=== PATIENT | female | born 1955 | race Caucasian/White ===

== ENCOUNTER 2024-01-19 14:00 | Inpatient (IN) | payer MEDICARE ==
[~2024-01-19] VITALS: Ht 157.5 cm; Wt 65.2 kg
[2024-01-19] MEDS ORDERED: mag hydrox/Alum hydrox/simeth 30ml oral suspension PO PRN (18:10)
[2024-01-19] MEDS ORDERED: magnesium sulf-water 2g/50mL 50 ML IV PRN (18:10)
[2024-01-19] MEDS ORDERED: morphine 2 MG/ML inj. syringe IV PRN (18:10)
[2024-01-19] MEDS ORDERED: magnesium sulf-water 4G/100mL 100 ML IV PRN (18:10)
[2024-01-19] MEDS ORDERED: potassium Cl 20 mEq SR tablet PO PRN (18:10)
[2024-01-19] MEDS ORDERED: HYDROcodone/acetaminophen 5mg/325mg tablet PO PRN (18:10)
[2024-01-19] MEDS ORDERED: acetaminophen 325mg tablet PO PRN (18:10)
[2024-01-19] MEDS ORDERED: magnesium hydroxide 30ml (MOM) UD suspension PO PRN (18:10)
[2024-01-19] MEDS ORDERED: magnesium Cl slow-release 64mg tablet PO PRN (18:10)
[2024-01-19] MEDS ORDERED: haloperidol 5mg tablet PO PRN (19:40)
[2024-01-19] MEDS ORDERED: LORazepam 1 MG tablet PO PRN (19:40)
[2024-01-19] MEDS ORDERED: haloperidol lactate 5mg/ml inj IM PRN (19:40)
[2024-01-19] MEDS ORDERED: LORazepam 2 mg/ml vial IV PRN (19:40)
[2024-01-19 20:00] VITALS: RESP 16
[2024-01-19] MEDS: normal saline 1000ml 1,000 ML IV SCH ×2 (20:17→20:40)
[2024-01-19] MEDS: docusate sod 100mg capsule PO SCH (20:30)
[2024-01-19] MEDS: folic acid 1mg tablet PO SCH (20:30)
[2024-01-19] MEDS: K and/or MAG REPLACEMENT MC SCH (20:30)
[2024-01-19] MEDS: thiamine 100mg tablet PO SCH (20:30)
[2024-01-19] MEDS: pantoprazole 40 MG vial IV SCH (20:48)
[2024-01-19] MEDS: morphine 2 MG/ML inj. syringe IV PRN (20:49)
[2024-01-19] MEDS ORDERED: TOFA5TAB PO (21:07)
[2024-01-19] MEDS ORDERED: ROSU40TA PO (21:07)
[2024-01-19] MEDS ORDERED: FERR325T28 PO (21:07)
[2024-01-19 21:16] LABS: % IRON SATURATION 16 % (11-46); IRON 37 UG/DL (49-151); TOTAL IRON BINDING CAPACITY 237 UG/DL (259-388)
[2024-01-19 21:17] LABS: APTT 28 SECONDS (22-32); PROTHROMBIN TIME 10.4 SECONDS (9.0-12.0)
[2024-01-19 21:19] LABS: ALANINE AMINOTRANSFERASE 851 U/L (12-78); ALBUMIN 3.1 G/DL (3.4-5.0); ALBUMIN/GLOBULIN RATIO 0.8 (1.1-1.5); ALKALINE PHOSPHATASE 493 IU/L (46-116); ANION GAP 7 (8-16); ASPARTATE AMINO TRANSFERASE 654 U/L (10-37); BILIRUBIN,TOTAL 2.4 MG/DL (0.1-1.0); BLOOD UREA NITROGEN 9 MG/DL (7-18); BUN/CREATININE RATIO 10.1 (10.0-20.0); CALCIUM 8.5 MG/DL (8.5-10.1); CHLORIDE 106 MMOL/L (99-107); CREATININE 0.89 MG/DL (0.40-0.90); GLUCOSE 96 MG/DL (70-104); SODIUM 138 MMOL/L (135-145); TOTAL CARBON DIOXIDE 24.7 MMOL/L (24-32); TOTAL PROTEIN 6.8 G/DL (6.4-8.2); eCRCL 49 ML/MIN; eGFR 63 ML/MIN
[2024-01-19 21:41] LABS: HEMOGLOBIN A1C 5.6 % (4.5-6.2)
[2024-01-19 22:00] VITALS: BP 131/70; PULSE 95; RESP 14; TEMP 97.3; O2SAT 100
[2024-01-19 22:11] LABS: FERRITIN 1660 NG/ML (8-252); LIPASE > 375 U/L (16-77)
[2024-01-20 05:52] LABS: BASOPHILS % (AUTO) 0.4 % (0-1); EOSINOPHILS # (AUTO) 0.3 X10'3 (0-0.9); EOSINOPHILS % (AUTO) 3.7 % (0-6); HEMATOCRIT 34.6 % (35.0-45.0); HEMOGLOBIN 11.7 g/dl (12.0-16.0); LYMPHOCYTES # (AUTO) 0.7 X10'3 (1.1-4.8); MEAN CORPUSCULAR HEMOGLOBIN 32.1 PG (27.0-31.0); MEAN CORPUSCULAR HGB CONC 33.7 g/dL (33.0-36.5); MEAN CORPUSCULAR VOLUME 95.1 FL (78-98); MEAN PLATELET VOLUME 7.2 FL (7.4-10.4); MONOCYTES # (AUTO) 0.7 X10'3 (0-0.9); NEUTROPHILS # (AUTO) 7.7 X10'3 (1.8-7.7); NEUTROPHILS % (AUTO) 81.9 % (42-75); PLATELET COUNT 316 X10'3 (140-440); RED BLOOD COUNT 3.64 X10'6 (4.20-5.60); RED CELL DISTRIBUTION WIDTH 14.2 % (11.5-14.5); WHITE BLOOD COUNT 9.4 X10'3 (4.5-11.0)
[2024-01-20 06:00] VITALS: BP 103/67; PULSE 105; RESP 18; TEMP 97.3; O2SAT 98
[2024-01-20 06:08] LABS: ALANINE AMINOTRANSFERASE 710 U/L (12-78); ALBUMIN 2.7 G/DL (3.4-5.0); ALBUMIN/GLOBULIN RATIO 0.8 (1.1-1.5); ALKALINE PHOSPHATASE 539 IU/L (46-116); AMYLASE 527 U/L (25-115); ANION GAP 8 (8-16); ASPARTATE AMINO TRANSFERASE 494 U/L (10-37); BILIRUBIN,TOTAL 2.6 MG/DL (0.1-1.0); BLOOD UREA NITROGEN 8 MG/DL (7-18); BUN/CREATININE RATIO 11.3 (10.0-20.0); CALCIUM 7.9 MG/DL (8.5-10.1); CHLORIDE 106 MMOL/L (99-107); CHOL/HDL RATIO 1.8 (0.00-4.99); CHOLESTEROL 158 MG/DL (0-200); CREATININE 0.71 MG/DL (0.40-0.90); GLUCOSE 90 MG/DL (70-104); HDL CHOLESTEROL 90 MG/DL (35-60); LDL CHOLESTEROL 31 MG/DL (50-100); MAGNESIUM 1.7 MG/DL (1.5-2.4); PHOSPHORUS 2.4 MG/DL (2.3-4.5); POTASSIUM 4.1 MMOL/L (3.5-5.1); SODIUM 136 MMOL/L (135-145); TOTAL CARBON DIOXIDE 21.9 MMOL/L (24-32); TOTAL PROTEIN 6.1 G/DL (6.4-8.2); TRIGLYCERIDES 60 MG/DL (20-135); eCRCL 61 ML/MIN; eGFR 82 ML/MIN
[2024-01-20 06:40] LABS: LIPASE > 375 U/L (16-77)
[2024-01-20 09:00] VITALS: RESP 18; O2SAT 98
[2024-01-20 10:00] VITALS: BP 139/79; PULSE 79; RESP 17; TEMP 97.4; O2SAT 95
[2024-01-20] MEDS: pneumococcal 23-VAL P-sac vacc 25 mcg/0.5ml vial IMVAC ONE (14:30)
[2024-01-20] MEDS: multivitamins, therapeutics tablet PO SCH (17:10)
[2024-01-20] MEDS: dextrose 5%-normal saline 1,000 ML IV SCH (17:20)
[2024-01-20 18:00] VITALS: BP 169/82; PULSE 89; RESP 19; TEMP 99.1; O2SAT 98
[2024-01-20] MEDS: ondansetron/PF 4mg/2ml inj IV PRN (18:17)
[2024-01-20] MEDS: HYDROcodone/acetaminophen 10/325mg tab PO PRN (18:18)
[2024-01-20 20:00] VITALS: RESP 19; O2SAT 98
[2024-01-20 22:00] VITALS: BP 146/78; PULSE 64; RESP 16; TEMP 97.7; O2SAT 98
[2024-01-21] VITALS (16 sets, daily range): BP systolic 95–152; BP diastolic 48–88; PULSE 69–93; RESP 10–18; TEMP 96.4–99.1; O2SAT 95–99
[2024-01-21 05:33] LABS: BASOPHILS % (AUTO) 0.4 % (0-1); EOSINOPHILS # (AUTO) 0.3 X10'3 (0-0.9); EOSINOPHILS % (AUTO) 4.6 % (0-6); HEMATOCRIT 34.2 % (35.0-45.0); HEMOGLOBIN 11.4 g/dl (12.0-16.0); LYMPHOCYTES # (AUTO) 0.7 X10'3 (1.1-4.8); LYMPHOCYTES % (AUTO) 11.6 % (21-51); MEAN CORPUSCULAR HEMOGLOBIN 31.6 PG (27.0-31.0); MEAN CORPUSCULAR HGB CONC 33.3 g/dL (33.0-36.5); MEAN CORPUSCULAR VOLUME 94.7 FL (78-98); MONOCYTES # (AUTO) 0.6 X10'3 (0-0.9); MONOCYTES % (AUTO) 9.6 % (2-12); NEUTROPHILS # (AUTO) 4.3 X10'3 (1.8-7.7); NEUTROPHILS % (AUTO) 73.8 % (42-75); PLATELET COUNT 342 X10'3 (140-440); RED BLOOD COUNT 3.61 X10'6 (4.20-5.60); RED CELL DISTRIBUTION WIDTH 14.2 % (11.5-14.5); WHITE BLOOD COUNT 5.8 X10'3 (4.5-11.0)
[2024-01-21 05:59] LABS: ALANINE AMINOTRANSFERASE 631 U/L (12-78); ALBUMIN 2.6 G/DL (3.4-5.0); ALBUMIN/GLOBULIN RATIO 0.7 (1.1-1.5); ALKALINE PHOSPHATASE 638 IU/L (46-116); AMYLASE 216 U/L (25-115); ANION GAP 4 (8-16); ASPARTATE AMINO TRANSFERASE 434 U/L (10-37); BILIRUBIN,TOTAL 1.6 MG/DL (0.1-1.0); BLOOD UREA NITROGEN 6 MG/DL (7-18); BUN/CREATININE RATIO 7.3 (10.0-20.0); CALCIUM 7.6 MG/DL (8.5-10.1); CHLORIDE 110 MMOL/L (99-107); CREATININE 0.82 MG/DL (0.40-0.90); GLUCOSE 151 MG/DL (70-104); MAGNESIUM 1.9 MG/DL (1.5-2.4); PHOSPHORUS 1.9 MG/DL (2.3-4.5); POTASSIUM 3.8 MMOL/L (3.5-5.1); SODIUM 138 MMOL/L (135-145); TOTAL CARBON DIOXIDE 23.9 MMOL/L (24-32); TOTAL PROTEIN 6.1 G/DL (6.4-8.2); eCRCL 53 ML/MIN; eGFR 70 ML/MIN
[2024-01-21] MEDS: FLU VACC TS2024-25(6MOS UP)/PF 45 MCG/0.5 ML SYRINGE IMVAC ONE (08:04)
[2024-01-21 08:21] LABS: LIPASE 362 U/L (16-77)
[2024-01-21] MEDS ORDERED: glucagon, human recombinant 1mg kit ONE (09:08)
[2024-01-21] MEDS ORDERED: proCHLORperazine 10 MG/2 ml inj ONE (09:08)
[2024-01-21] MEDS ORDERED: iohexol 300mg/ml 100ml inj. ONE (09:09)
[2024-01-21] MEDS ORDERED: LIDOcaine 2% Viscous 15ml cup ONE (09:09)
[2024-01-21] MEDS ORDERED: levoFLOXACIN-Levaquin 500mg/D5 0 ML IV ONE (09:24)
[2024-01-21] MEDS ORDERED: fentaNYL/PF 50MCG/1 ML 2ML syringe ONE (09:59)
[2024-01-21] MEDS ORDERED: MIDAZolam 1 MG/ML 5ML VIAL ONE (10:00)
[2024-01-21] MEDS: metoclopramide 5 mg/ml inj IV PRN (20:05)
[2024-01-22] VITALS (7 sets, daily range): BP systolic 103–146; BP diastolic 68–88; PULSE 87–92; RESP 16–18; TEMP 97.6–99.1; O2SAT 96–98
[2024-01-22 05:09] LABS: BASOPHILS % (AUTO) 0.2 % (0-1); EOSINOPHILS # (AUTO) 0.1 X10'3 (0-0.9); EOSINOPHILS % (AUTO) 1.3 % (0-6); HEMATOCRIT 37.4 % (35.0-45.0); HEMOGLOBIN 12.4 g/dl (12.0-16.0); LYMPHOCYTES # (AUTO) 0.9 X10'3 (1.1-4.8); LYMPHOCYTES % (AUTO) 10.5 % (21-51); MEAN CORPUSCULAR HEMOGLOBIN 31.7 PG (27.0-31.0); MEAN CORPUSCULAR HGB CONC 33.2 g/dL (33.0-36.5); MEAN CORPUSCULAR VOLUME 95.5 FL (78-98); MEAN PLATELET VOLUME 7.6 FL (7.4-10.4); MONOCYTES # (AUTO) 0.7 X10'3 (0-0.9); MONOCYTES % (AUTO) 8.4 % (2-12); NEUTROPHILS % (AUTO) 79.6 % (42-75); PLATELET COUNT 405 X10'3 (140-440); RED BLOOD COUNT 3.91 X10'6 (4.20-5.60); RED CELL DISTRIBUTION WIDTH 14.4 % (11.5-14.5); WHITE BLOOD COUNT 8.7 X10'3 (4.5-11.0)
[2024-01-22 05:35] LABS: ALANINE AMINOTRANSFERASE 466 U/L (12-78); ALBUMIN 2.6 G/DL (3.4-5.0); ALBUMIN/GLOBULIN RATIO 0.7 (1.1-1.5); ALKALINE PHOSPHATASE 543 IU/L (46-116); AMYLASE 36 U/L (25-115); ANION GAP 9 (8-16); ASPARTATE AMINO TRANSFERASE 137 U/L (10-37); BILIRUBIN,TOTAL 0.7 MG/DL (0.1-1.0); BLOOD UREA NITROGEN 3 MG/DL (7-18); BUN/CREATININE RATIO 4.2 (10.0-20.0); CHLORIDE 109 MMOL/L (99-107); CREATININE 0.72 MG/DL (0.40-0.90); GLUCOSE 157 MG/DL (70-104); LIPASE 35 U/L (16-77); MAGNESIUM 1.8 MG/DL (1.5-2.4); PHOSPHORUS 2.1 MG/DL (2.3-4.5); POTASSIUM 3.3 MMOL/L (3.5-5.1); SODIUM 139 MMOL/L (135-145); TOTAL CARBON DIOXIDE 20.8 MMOL/L (24-32); TOTAL PROTEIN 6.3 G/DL (6.4-8.2); eCRCL 60 ML/MIN; eGFR 81 ML/MIN
[2024-01-22] MEDS: potassium Cl 20 mEq SR tablet PO PRN (07:36)
[2024-01-22] MEDS: potassium Cl 40MEQ/1/2NS 520ml 520 ML IV PRN (09:57)
[2024-01-22] MEDS ORDERED: ONDA-243 PO (10:24)
[2024-01-22] MEDS ORDERED: THIA100T70 PO (10:26)
[2024-01-22] MEDS ORDERED: FOLI0.4T6 PO (10:26)
[2024-01-23 05:06] LABS: BASOPHILS % (AUTO) 0.3 % (0-1); EOSINOPHILS # (AUTO) 0.1 X10'3 (0-0.9); EOSINOPHILS % (AUTO) 1.3 % (0-6); HEMATOCRIT 36.3 % (35.0-45.0); LYMPHOCYTES # (AUTO) 0.8 X10'3 (1.1-4.8); LYMPHOCYTES % (AUTO) 12.9 % (21-51); MEAN CORPUSCULAR HEMOGLOBIN 31.3 PG (27.0-31.0); MEAN CORPUSCULAR HGB CONC 33.1 g/dL (33.0-36.5); MEAN CORPUSCULAR VOLUME 94.6 FL (78-98); MONOCYTES # (AUTO) 0.9 X10'3 (0-0.9); MONOCYTES % (AUTO) 13.9 % (2-12); NEUTROPHILS # (AUTO) 4.4 X10'3 (1.8-7.7); NEUTROPHILS % (AUTO) 71.6 % (42-75); PLATELET COUNT 385 X10'3 (140-440); RED BLOOD COUNT 3.83 X10'6 (4.20-5.60); RED CELL DISTRIBUTION WIDTH 14.4 % (11.5-14.5); WHITE BLOOD COUNT 6.2 X10'3 (4.5-11.0)
[2024-01-23 05:21] LABS: ALANINE AMINOTRANSFERASE 293 U/L (12-78); ALBUMIN 2.4 G/DL (3.4-5.0); ALBUMIN/GLOBULIN RATIO 0.7 (1.1-1.5); ALKALINE PHOSPHATASE 389 IU/L (46-116); AMYLASE 34 U/L (25-115); ANION GAP 5 (8-16); ASPARTATE AMINO TRANSFERASE 48 U/L (10-37); BILIRUBIN,TOTAL 0.5 MG/DL (0.1-1.0); BLOOD UREA NITROGEN 5 MG/DL (7-18); BUN/CREATININE RATIO 6.5 (10.0-20.0); CALCIUM 7.8 MG/DL (8.5-10.1); CHLORIDE 111 MMOL/L (99-107); CREATININE 0.77 MG/DL (0.40-0.90); GLUCOSE 156 MG/DL (70-104); MAGNESIUM 1.7 MG/DL (1.5-2.4); PHOSPHORUS 2.1 MG/DL (2.3-4.5); POTASSIUM 3.5 MMOL/L (3.5-5.1); SODIUM 140 MMOL/L (135-145); TOTAL CARBON DIOXIDE 24.3 MMOL/L (24-32); eCRCL 56 ML/MIN; eGFR 75 ML/MIN
[2024-01-23 06:00] VITALS: BP 145/79; PULSE 85; RESP 16; TEMP 97.8; O2SAT 97
[2024-01-23 08:00] VITALS: RESP 16; O2SAT 97
[2024-01-23] MEDS: diatr meglu/diatrizoate 30ml oral sol.-(3 dose) bottle PO SCH (13:20)
[2024-01-23] MEDS: bisacodyl 10mg suppository rectal RC STA (14:00)
[2024-01-23 18:00] VITALS: BP 163/88; PULSE 87; RESP 15; TEMP 98.6; O2SAT 98
[2024-01-23] MEDS: NUT.TX.IMPAIRED DIGEST FXN (Ensure Clear) 237 ML PO SCH (18:00)
[2024-01-23] MEDS ORDERED: iohexol 300mg/ml 100ml inj. ONE (19:14)
[2024-01-23] MEDS: HYDROmorphone/PF 0.2 MG/ML SYRINGE IV PRN (19:18)
[2024-01-23 20:00] VITALS: RESP 15; O2SAT 98
[2024-01-23 22:00] VITALS: BP 165/99; PULSE 92; RESP 16; TEMP 98.7; O2SAT 97
[2024-01-24 05:20] LABS: BASOPHILS % (AUTO) 0.2 % (0-1); EOSINOPHILS % (AUTO) 0.4 % (0-6); HEMATOCRIT 38.3 % (35.0-45.0); HEMOGLOBIN 12.8 g/dl (12.0-16.0); LYMPHOCYTES # (AUTO) 0.8 X10'3 (1.1-4.8); LYMPHOCYTES % (AUTO) 13.8 % (21-51); MEAN CORPUSCULAR HEMOGLOBIN 31.4 PG (27.0-31.0); MEAN CORPUSCULAR HGB CONC 33.4 g/dL (33.0-36.5); MEAN PLATELET VOLUME 7.3 FL (7.4-10.4); MONOCYTES # (AUTO) 0.9 X10'3 (0-0.9); MONOCYTES % (AUTO) 15.3 % (2-12); NEUTROPHILS # (AUTO) 4.2 X10'3 (1.8-7.7); NEUTROPHILS % (AUTO) 70.3 % (42-75); PLATELET COUNT 432 X10'3 (140-440); RED BLOOD COUNT 4.07 X10'6 (4.20-5.60); RED CELL DISTRIBUTION WIDTH 14.4 % (11.5-14.5)
[2024-01-24 05:32] LABS: ALANINE AMINOTRANSFERASE 225 U/L (12-78); ALBUMIN 2.6 G/DL (3.4-5.0); ALBUMIN/GLOBULIN RATIO 0.7 (1.1-1.5); ALKALINE PHOSPHATASE 332 IU/L (46-116); AMYLASE 40 U/L (25-115); ANION GAP 7 (8-16); ASPARTATE AMINO TRANSFERASE 31 U/L (10-37); BILIRUBIN,TOTAL 0.5 MG/DL (0.1-1.0); BLOOD UREA NITROGEN 4 MG/DL (7-18); BUN/CREATININE RATIO 4.9 (10.0-20.0); CALCIUM 8.2 MG/DL (8.5-10.1); CHLORIDE 108 MMOL/L (99-107); CREATININE 0.81 MG/DL (0.40-0.90); GLUCOSE 165 MG/DL (70-104); PHOSPHORUS 2.3 MG/DL (2.3-4.5); POTASSIUM 3.1 MMOL/L (3.5-5.1); SODIUM 140 MMOL/L (135-145); TOTAL CARBON DIOXIDE 25.2 MMOL/L (24-32); TOTAL PROTEIN 6.2 G/DL (6.4-8.2); eCRCL 53 ML/MIN; eGFR 71 ML/MIN
[2024-01-24 06:39] VITALS: BP 125/83; PULSE 105; RESP 14; TEMP 98.3; O2SAT 96
[2024-01-24 08:00] VITALS: RESP 16; O2SAT 98
[2024-01-24 10:00] VITALS: BP 157/89; PULSE 78; RESP 16; TEMP 98
[2024-01-24] MEDS ORDERED: potassium Cl 20 mEq SR tablet PO PRN ×2 (11:05)
[2024-01-24] MEDS: potassium Cl 40MEQ/1/2NS 520ml 520 ML IV PRN (11:50)
[2024-01-24 18:30] VITALS: BP 163/94; PULSE 80; RESP 16; TEMP 98.7; O2SAT 98
[2024-01-24 22:00] VITALS: BP 166/88; PULSE 79; RESP 16; TEMP 98.7; O2SAT 96
[2024-01-25 06:00] VITALS: BP 154/81; PULSE 80; RESP 20; TEMP 98.4; O2SAT 96
[2024-01-25 10:00] VITALS: BP 145/86; PULSE 80; RESP 16; TEMP 97.5; O2SAT 97
== END 2024-01-25 12:00 | disposition home or self-care (01) | DRG 438 ==
LOC: SUR 3N 14:00
PROVIDERS: ADMIT Family Medicine; ATTEND Family Medicine
PROC: 0F7C8DZ Dilation of Ampulla of Vater with Intraluminal Device, Via Natural or Artificial Opening Endoscopic (ICD-10-PCS; principal; 2024-01-21)
PROC: BF101ZZ Fluoroscopy of Bile Ducts using Low Osmolar Contrast (ICD-10-PCS; 2024-01-21)
PROC: BW211ZZ Computerized Tomography (CT Scan) of Abdomen and Pelvis using Low Osmolar Contrast (ICD-10-PCS; 2024-01-23)
DX: K85.90 Acute pancreatitis without necrosis or infection, unspecified (principal); K83.1 Obstruction of bile duct; K56.600 Partial intestinal obstruction, unspecified as to cause; K56.7 Ileus, unspecified; D64.9 Anemia, unspecified; K57.10 Diverticulosis of small intestine without perforation or abscess without bleeding; M06.9 Rheumatoid arthritis, unspecified; E87.6 Hypokalemia; Z90.49 Acquired absence of other specified parts of digestive tract
CPT/HCPCS: 36415; 43261; 43262; 43264; 43274; 71045; 74177; 74181; 80053; 80061; 82150; 82728; 83036; 83540; 83550; 83690; 83735; 84100; 85025; 85610; 85730; 87081; 88108; 88305; 90686; 90732; 99152; 99153; A4620; C1769; C2625; G0378; J0780; J1171; J1610; J1956; J2250; J2270; J2405; J2470; J2765; J3010; J3480; J7030; J7042; J7070; Q9963; Q9967